=== PATIENT | female | born 1940 | race Asian ===

== ENCOUNTER → 2017-01-13 13:01 | Outpatient (CLI) | payer MEDICARE ==
[~2017-01-13] VITALS: Ht 160 cm; Wt 56.8 kg
[~2017-01-13 13:01] MED LIST: GLUCOPHAGE1000 MG PO; HYZAAR 50-12.51 TAB PO; LEXAPRO10 MG PO; LIPITOR10 MG; RESTORIL15 MG PO
[2017-01-13 13:25] VITALS: BP 119/61; Ht 160 cm; Wt 56.8 kg
== END | disposition home or self-care (01) ==
LOC: D.OPS 13:01
DX: M81.0 Age-related osteoporosis without current pathological fracture (principal)

== ENCOUNTER 2018-05-08 08:07 | Outpatient (CLI) | payer MEDICARE ==
[~2018-05-08] VITALS: Ht 160 cm; Wt 61.4 kg
[2018-05-08 09:10] VITALS: BP 132/75; Ht 160 cm; Wt 61.4 kg
--- NOTE | 2018-05-08 09:50 | NUR ---
0945 RECLAST COMPLETED, ENCOURAGED TO DRINK EXTRA WATER TODAY. IV DC'D WITH CATH INTACT RELEASED AMBULATORY.
== END 2018-05-08 09:49 | disposition home or self-care (01) ==
LOC: D.OPS 08:07
PROVIDERS: ATTEND Family Medicine
DX: M81.0 Age-related osteoporosis without current pathological fracture (principal); Z01.812 Encounter for preprocedural laboratory examination

== ENCOUNTER 2020-07-31 10:39 | Outpatient (CLI) | payer MEDICARE ==
[~2020-07-31] VITALS: Ht 160 cm; Wt 63.6 kg
[2020-07-31 11:23] VITALS: BP 104/44; Ht 160 cm; Wt 63.6 kg
== END 2020-07-31 11:58 | disposition home or self-care (01) ==
LOC: D.OPS 10:39
PROVIDERS: ATTEND Family Medicine
DX: M81.0 Age-related osteoporosis without current pathological fracture (principal)